=== PATIENT | female | born 1955 | race Caucasian/White ===

== ENCOUNTER 2017-06-25 16:05 | Inpatient (IN) | payer BC, OTHER ==
[~2017-06-25] VITALS: Ht 162.6 cm; Wt 93.0 kg
[~2017-06-25 16:05] MED LIST: HUMALOG100 UNIT/1 SQ; HUMALOG100 UNITS/ SQ; LEVEMIR 3M100 UNITS/ SQ; METFORMIN HCL1000 MG PO; NORVASC; NORVASC10 MG PO; PROZAC10 MG PO; SIMVASTATIN; TRAZODONE HCL100 MG PO; TRILIPIX; TRILIPIX45 MG PO
--- OUTSIDE RECORDS SUMMARY | 2017-06-25 16:08 | XMS REPORT | Summary of Care ---
Author Author JIM VELASQUEZ M.D. Organization Unknown Address Unknown Phone Unavailable Care Team Providers Care Plastic Frame Inserter Name Role Phone JIM VELASQUEZ M.D. Unavailable Unavailable Unavailable Unavailable Functional Status Name Dates Details Functional status health issues are not documented Status: Name Dates Details Cognitive status health issues are not documented Status: Problems Name Dates Details BMI 36.0-36.9,adult (V85.36, Z68.36) Status: Active Gout, arthritis (274.00, M10.9) Status: Active Abnormal LFTs (liver function tests) (790.6, R94.5) Status: Active Diabetes mellitus (250.00, E11.9) Status: Active Hypertension (401.9, I10) Status: Active Mixed hyperlipidemia (272.2, E78.2) Status: Active Vitamin D insufficiency (268.9, E55.9) Status: Active Medications Name Dates Details Shay Maldonado 33G Check BG 3x a day Quantity: 100 EVA Kimberly.JIM Armando * Start : 02-Dec-2013 Active MetFORMIN HCl - 1000 MG Oral Tablet TAKE ONE (1) TABLET(S) BY MOUTH TWICE A DAY WITH FOOD. * Quantity: 60 Refills: 2 EVA Kimberly.Juan Alberto.JIM * Start : 03-May-2017 Active B-12 500 MCG Oral Tablet TAKE 1 TABLET DAILY. * Quantity: 100 Refills: 6 EVA Kimberly.JIM Armando * Start : 02-Dec-2013 Active Vitamin D3 2000 UNIT Oral Capsule 1 a day Restart 06-05-15 * Quantity: 100 Refills: 6 EVA Kimberly.JIM Armando * Start : 02-Dec-2013 Active PROzac 20 MG Oral Capsule * Refills: 0 EVA M.JIM Armando * Start : 02-Dec-2013 Active TraZODone HCl - 150 MG Oral Tablet * Refills: 0 EVA M.JIM Armando * Start : 02-Dec-2013 Active Aspirin 81 MG TABS * Refills: 0 EVA M.D., JIM * Start : 02-Dec-2013 Active BD Pen Needle Short U/F 31G X 8 MM 5 a day * Quantity: 500 Refills: 10 JIM VELASQUEZ M.D. * Start : 02-Dec-2013 Active Vqnmw-3-etll Ethyl Esters 1 GM Oral Capsule TAKE 4 CAPSULES DAILY. * Quantity: 360 Refills: 1 JIM VELASQUEZ M.D. * Start : 01-Feb-2014 Active ALPRAZolam 1 MG Oral Tablet * Refills: 0 JIM VELASQUEZ M.D. * Start : 01-Feb-2014 Active NovoLOG FlexPen 100 UNIT/ML Subcutaneous Solution Pen-injector INJECT 20 UNITS SUBCUTANEOUSLY WITH MEALS, 5 UNITS WITH SNACKS, CF 40 UP TO A MAXIMUM OF 100 UNITS A DAY. * Quantity: 2 Refills: 2 JIM VELASQUEZ M.D. * Start : 09-Aug-2014 Active 5 x 3 ML Pen OneTouch Verio In Vitro Strip Check BG 3x a day * Quantity: 100 Refills: 10 JIM VELASQUEZ M.D. * Start : 11-Feb-2015 Active Tresiba FlexTouch 200 UNIT/ML Subcutaneous Solution Pen-injector INJECT 100 UNITS SUBCUTANEOUSLY ONCE A DAY (REPLACING LANTUS). * Quantity: 2 Refills: 2 JIM VELASQUEZ M.D. * Start : 07-Jun-2017 Active 3 x 3 ML Pen Clotrimazole 1 % External Cream APPLY 2-3 TIMES DAILY TO AFFECTED AREA(S). * Quantity: 2 Refills: 6 JIM VELASQUEZ M.D. Start : 20-Sep-2015 Active 45 GM Tube Allopurinol 100 MG Oral Tablet Per PCP * Refills: 0 JIM VELASQUEZ M.D. * Start : 28-Aug-2016 Active Valsartan 320 MG Oral Tablet TAKE ONE (1) TABLET(S) BY MOUTH ONCE DAILY. * Quantity: 90 Refills: 0 JIM VELASQUEZ M.D. * Start : 02-Jun-2017 Active Atorvastatin Calcium 20 MG Oral Tablet TAKE ONE (1) TABLET(S) BY MOUTH ONCE A DAY AT BEDTIME. REPLACING SIMVASTATIN. * Quantity: 30 Refills: 2 JIM VELASQUEZ M.D. * Start : 03-May-2017 Active Farxiga 10 MG Oral Tablet 1 tablet every day;REplacing Jardiance * Quantity: 30 Refills: 3 EVA Mitchell, JIM * Start : 22-Apr-2017 Active Gabapentin 300 MG Oral Capsule * Refills: 0 JIM VELASQUEZ M.D. * Start : 22-Apr-2017 Active Allergies and Adverse Reactions Name Dates Details Codeine Sulfate TABS (Allergy) Status: Active Lisinopril TABS (Allergy) Status: Active Morphine Sulfate TABS (Allergy) Status: Active Past Medical History Name Dates Details History of IBS (V12.79, Z87.19) Status: Resolved History of pancreatitis (V12.79, Z87.19) Status: Resolved Procedures Procedure Dates Details History of Section Completed History of Hemorrhoidectomy Completed History of Foot Surgery Completed Immunization Name Dates Details Influenza on: 20-Dec-2013 Influenza Comments: Approx [id number] Zoster (Zostavax) Comments: Approx [id number] Influenza Comments: Approx [id number] Influenza Comments: Approx [id number] Family History Name Dates Details Family history of diabetes mellitus (V18.0, Z83.3) Status: Active Family history of coronary arteriosclerosis (V17.3, Z82.49) Status: Active Social History Name Dates Details - Status: Name Dates Details Never smoker Vital Signs Date Test Result Details No Known Vitals to report Results Date Description Value Details Results not documented Plan of Care Name Dates Details Planned Observations Planned Goals not documented Planned Encounters Appointment; JIM VELASQUEZ M.D. On: 27-Jul-2017 16:15 Instructions Name Dates Details Instructions not documented Encounters Appointment; JIM VELASQUEZ M.D. Encounter Diagnosis: Problem not documented On: 20-Sep-2015 10:30 Appointment; JIM VELASQUEZ M.D. Encounter Diagnosis: Problem not documented On: 29-Jan-2016 8:00 Appointment; IJM VELASQUEZ M.D. Encounter Diagnosis: Problem not documented On: 13-May-2016 8:00 Appointment; JIM VELASQUEZ M.D. Encounter Diagnosis: Problem not documented On: 28-Aug-2016 9:30 Appointment; JIM VELASQUEZ M.D. Encounter Diagnosis: Problem not documented On: 06-Jan-2017 8:30 Appointment; JIM VELASQUEZ M.D. Encounter Diagnosis: Problem not documented On: 22-Apr-2017 16:15
[2017-06-25] MEDS ORDERED: SODIUM CHLORIDE 0.9% 1000ML 1,000 ML IV STA (16:32)
[2017-06-25] MEDS ORDERED: ONDANSETRON HCL INJ 2 MG/ML VIAL IV STA (16:32)
[2017-06-25] MEDS ORDERED: FENTANYL CITRATE/PF 100MCG/2 ML INJ IV ONE ×2 (16:45→19:15)
[2017-06-25] MEDS ORDERED: ONDANSETRON HCL 4 MG ORAL DISINTEGRATING TAB PO ONE (17:00)
--- NOTE | 2017-06-25 17:11 | Diagnostic Imaging Report ---
PROCEDURE: A single AP view of the chest. COMPARISON: None. INDICATIONS: RIGHT UPPER QUAD PAIN TODAY FINDINGS: Exam limited by patient rotation. Lines/tubes: None. Lungs: Lungs are well-inflated. Patchy opacity in the left lower lobe. No consolidation or pulmonary edema. Pleura: There is no pleural effusion or pneumothorax. Heart and mediastinum: Mild prominent cardiac silhouette, which is partly due to AP projection. Normal pulmonary vasculature. Bones: No acute bony abnormality. IMPRESSION: 1. patchy opacity in the left lower lobe likely represents atelectasis. Developing pneumonia is a consideration, in the appropriate clinical setting. Khang Miller M.D. Dictated by: Khang Miller M.D. on 06/25/2017 at 17:11 Electronically approved by: Khang Miller M.D. on 06/25/2017 at 17:11
[2017-06-25 17:17] LABS: BASOPHILS # (AUTO) 0.1 (0.0-0.1); BASOPHILS % 0.7 % (0.0-1.0); EOSINOPHILS # (AUTO) 0.4 (0.0-0.4); HEMATOCRIT 44.7 % (34.2-44.1); HEMOGLOBIN 14.9 g/dL (12.0-16.0); LYMPHOCYTES # (AUTO) 2.6 (1.0-3.2); LYMPHOCYTES % 28.9 % (18.0-39.1); MEAN CORPUSCULAR HEMOGLOBIN 29.7 pg (28-32); MEAN CORPUSCULAR HGB CONC 33.3 g/dL (31-35); MEAN CORPUSCULAR VOLUME 89.2 fL (81-99); MONOCYTES # (AUTO) 0.6 (0.2-0.8); MONOCYTES % 6.6 % (4.4-11.3); NEUTROPHILS # (AUTO) 5.4 (2.1-6.9); NEUTROPHILS % 59.3 % (38.7-80.0); PLATELET COUNT 148 x10e3/uL (140-360); RED BLOOD COUNT 5.01 x10e6/uL (3.6-5.1); RED CELL DISTRIBUTION WIDTH 13.8 % (11.7-14.4)
[2017-06-25 17:32] LABS: ALANINE AMINOTRANSFERASE 80 IU/L (0-55); ALBUMIN/GLOBULIN RATIO 1.1 (0.8-2.0); ALKALINE PHOSPHATASE 58 IU/L (40-150); AMYLASE 47 U/L (25-125); ANION GAP 17.7 mmol/L (8-16); BLOOD UREA NITROGEN 15 mg/dL (7-26); BUN/CREATININE RATIO 17 (6-25); CALCIUM 9.6 mg/dL (8.4-10.2); CARBON DIOXIDE 22 mmol/L (22-29); CHLORIDE 104 mmol/L (98-107); CREATINE KINASE 109 IU/L (29-168); CREATININE, SERUM 0.89 mg/dL (0.57-1.11); EST GLOMERULAR FILTRATION RATE > 60 ML/MIN (60-); GLUCOSE 257 mg/dL (74-118); LIPASE 172 U/L (8-78); POTASSIUM 4.7 mmol/L (3.5-5.1); SODIUM 139 mmol/L (136-145)
--- NOTE | 2017-06-25 18:15 | Diagnostic Imaging Report ---
PROCEDURE: CT ABDOMEN AND PELVIS WITHOUT CONTRAST TECHNIQUE: The abdomen and pelvis were scanned utilizing a multidetector helical scanner from the diaphragm to the lesser trochanter. Patient unable to tolerate any oral contrast due to nausea. No IV contrast was administered per physician's request. Coronal and sagittal multiplanar reformations were obtained. COMPARISON: None. INDICATIONS: RIGHT SIDE ABDOMINAL PAIN, NAUSEA FINDINGS: ABSENCE OF INTRAVENOUS CONTRAST DECREASES SENSITIVITY FOR DETECTION OF FOCAL LESIONS AND VASCULAR PATHOLOGY. LOWER THORAX: 5 mm calcified granuloma in the posteromedial left lower lobe (series 3, image 35). 2-3 mm calcified granuloma in the lingula (series 3, image 9). HEPATOBILIARY: The liver is enlarged, measuring 16.9 cm in the right midclavicular line. Borderline low-attenuation, likely reflecting mild steatosis. No focal lesions in this unenhanced exam. Mild central intrahepatic biliary ductal dilation. The common bile duct is mildly dilated, measuring approximately 9 mm at the seda hepatis. No radiopaque intraluminal filling defects. Gallbladder is contracted. 0.6 cm calcified stone in the gallbladder lumen at the fundus. No pericholecystic fluid. SPLEEN: Borderline to mild splenomegaly, measuring 12.4 cm in AP diameter. PANCREAS: No focal masses or ductal dilatation. ADRENALS: No adrenal nodules. KIDNEYS/URETERS: No renal or ureteral calculi, hydronephrosis, or obstruction. No contour abnormalities. PELVIC ORGANS/BLADDER: Bladder and uterus are unremarkable. No adnexal masses. PERITONEUM / RETROPERITONEUM: No free air or fluid. LYMPH NODES: No intra-abdominal, retroperitoneal, pelvic, or inguinal adenopathy. VESSELS: Atherosclerotic calcification of the infrarenal abdominal aorta and proximal vessels. GI TRACT: No bowel dilation or evidence of obstruction. Appendix is well identified and normal in caliber. Oval shaped high density structure measuring 1.1 cm in the cecum likely represents an ingested pill material (series 3, image 120). A few scattered diverticula are noted in the sigmoid colon, without diverticulitis. Stomach is unremarkable. BONES AND SOFT TISSUES: No aggressive lytic lesions. Mild degenerative disc changes in the lower thoracic and lumbosacral spine. Tiny fat containing umbilical hernia. IMPRESSION: 1. Contracted gallbladder. Cholelithiasis. No pericholecystic fluid or surrounding inflammatory changes to suggest acute cholecystitis. 2. Mild central intrahepatic biliary ductal dilation and mild dilation of the common bile duct. No radiopaque intraluminal filling defects are identified. Consider MRI abdomen/MRCP if there is clinical concern for choledocholithiasis. 3. Hepatomegaly with mild fatty infiltration. No focal lesions in this unenhanced exam. Khang Miller M.D. Dictated by: Khang Miller M.D. on 06/25/2017 at 18:15 Electronically approved by: Khang Miller M.D. on 06/25/2017 at 18:15
--- NOTE | 2017-06-25 18:40 | Diagnostic Imaging Report ---
PROCEDURE:US GALLBLADDER COMPARISON:[facility], CT, CT ABDOMEN/PELVIS WO, 06/25/2017, 17:24. INDICATIONS:ABDOMEN PAIN TECHNIQUE: Vlilasenor-scale and color doppler transverse and longitudinal images of the right upper quadrant of the abdomen were obtained. FINDINGS: Exam limited by overlying bowel gas and patient's body habitus. The patient is not n.p.o. Liver: 17.9 cm in right mid-clavicular line. Increased echogenicity. No masses. Main portal vein: 0.9 cm, hepatopetal flow Gallbladder: Contracted gallbladder, which limits evaluation. 0.8 cm echogenic stone with posterior acoustic shadowing in the gallbladder lumen. No sludge. No pericholecystic fluid. Common Bile Duct: 0.9 cm, mildly dilated. Sonographic Flores's sign: Positive Right kidney: 11.7 cm. Normal echogenicity. No solid masses or hydronephrosis. 1.4 x 1.3 x 1.1 cm cystic, anechoic lesion in the inferomedial aspect Pancreas: The visualized portions of the neck are unremarkable. Inferior vena cava: Patent Aorta: Proximal and mid-portions are unremarkable. Distal aorta is obscured by overlying bowel gas. Ascites: None in the right upper quadrant of the abdomen. CONCLUSION: 1. Contracted gallbladder, which limits evaluation. 0.8 cm echogenic stone in the gallbladder lumen. The sonographic Flores sign is positive, which raises the possibility of cholecystitis, however, no definite wall thickening or surrounding inflammatory changes or pericholecystic fluid are noted on CT performed same date. 2. Mild dilation of the common bile duct. MRI abdomen/MRCP is recommended, if there is clinical concern for choledocholithiasis. 3. Hepatomegaly with diffuse fatty infiltration. No focal lesions. 4. 1.4 cm simple cyst in the right kidney. Khang Miller M.D. Dictated by: Khang Miller M.D. on 06/25/2017 at 18:01 Electronically approved by: Khang Miller M.D. on 06/25/2017 at 18:41
[2017-06-25] MEDS ORDERED: CEFOXITIN 1GM/ DEXTROSE 50ML ML IV SCH (20:15)
[2017-06-25] MEDS ORDERED: HYDROMORPHONE 1MG/1ML INJ IV PRN (20:15)
[2017-06-25] MEDS ORDERED: DEXTROSE 50% SYRINGE 50 ML IV PRN ×2 (20:15→20:30)
[2017-06-25] MEDS ORDERED: METRONIDAZOLE 500MG/NS 100ML 100 ML IV SCH (20:15)
--- OUTSIDE RECORDS SUMMARY | 2017-06-25 20:31 | XMS REPORT ---
Author [facility] Address Unknown Phone Unavailable Care Team Providers Care Sterile Supervisor Name Role Phone SNOW MANSFIELD Unavailable Unavailable Problems This patient has no known problems. Allergies, Adverse Reactions, Alerts This patient has no known allergies or adverse reactions. Medications This patient has no known medications. Results Test Description Test Time Test Comments Text Results Atomic Results Result Comments CHEST SINGLE (PORTABLE) [place] [address] Patient Name: RHIANNON TORRES MR #: [id number] : 1955 Age/Sex: 61/F Req #: [id number] Adm Physician: Ordered by: ESTUARDO GARZA VEST BACKER Report #: [id number] Location: ER Room/Bed: Procedure: [id number] DX/CHEST SINGLE (PORTABLE) Exam Date: 06/25/17 Exam Time: 1645 REPORT STATUS: Signed PROCEDURE: A single AP view of the chest. COMPARISON: None. INDICATIONS: RIGHT UPPER QUAD PAIN TODAY FINDINGS: Exam limited by patient rotation. Lines/tubes: None. Lungs: Lungs are well-inflated. Patchy opacity in the left lower lobe. No consolidation or pulmonary edema. Pleura: There is no pleural effusion or pneumothorax. Heart and mediastinum: Mild prominent cardiac silhouette, which is partly due to AP projection. Normal pulmonary vasculature. Bones: No acute bony abnormality. IMPRESSION : 1. patchy opacity in the left lower lobe likely represents atelectasis. Developing pneumonia is a consideration, in the appropriate clinical setting. Karla Miller M.D. Dictated by: Karla Miller M.D. on 06/25/2017 at 17:11 Electronically approved by : Karla Miller M.D. on 06/25/2017 at 17:11 Dictated By: KARLA MILLER MD 10 Transcribed By: KENY on 06/25/171710 COPY TO: ESTUARDO GARZA NP CT ABDOMEN/PELVIS WO [place] [address] Patient Name: RHIANNON TORRES MR #: [id number] : 1955 Age/Sex: 61/F Req #: [id number] Adm Physician: Ordered by: ESTUARDO GARZA NP Report #: [id number] Location: ER Room/Bed: Procedure: [id number] CT/CT ABDOMEN/PELVIS WO Exam Date: 06/25/17 Exam Time: 1724 REPORT STATUS: Signed PROCEDURE: CT ABDOMEN AND PELVIS WITHOUT CONTRAST TECHNIQUE: The abdomen and pelvis were scanned utilizing a multidetector helical scanner from the diaphragm to the lesser trochanter. Patient unable to tolerate any oral contrast due to nausea. No IV contrast was administered per physician's request. Coronal and sagittal multiplanar reformations were obtained. COMPARISON: None. INDICATIONS: RIGHT SIDE ABDOMINAL PAIN, NAUSEA FINDINGS: ABSENCE OF INTRAVENOUS CONTRAST DECREASES SENSITIVITY FOR DETECTION OF FOCAL LESIONS AND VASCULAR PATHOLOGY. LOWER THORAX: 5 mm calcified granuloma in the posteromedial left lower lobe (series 3, image 35). 2-3 mm calcified granuloma in the lingula (series 3, image 9). HEPATOBILIARY: The liver is enlarged, measuring 16.9 cm in the right midclavicular line. Borderline low-attenuation, likely reflecting mild steatosis. No focal lesions in this unenhanced exam. Mild central intrahepatic biliary ductal dilation. The common bile duct is mildly dilated, measuring approximately 9 mm at the seda hepatis. No radiopaque intraluminal filling defects. Gallbladder is contracted. 0.6 cm calcified stone in the gallbladder lumen at the fundus. No pericholecystic fluid. SPLEEN: Borderline to mild splenomegaly, measuring 12.4 cm in AP diameter. PANCREAS: No focal masses or ductal dilatation. ADRENALS: No adrenal nodules. KIDNEYS/URETERS: No renal or ureteral calculi, hydronephrosis, or obstruction. No contour abnormalities. PELVIC ORGANS/ BLADDER: Bladder and uterus are unremarkable. No adnexal masses. PERITONEUM / RETROPERITONEUM: No free air or fluid. LYMPH NODES: No intra- abdominal, retroperitoneal, pelvic, or inguinal adenopathy. VESSELS: Atherosclerotic calcification of the infrarenal abdominal aorta and proximal vessels. GI TRACT: No bowel dilation or evidence of obstruction. Appendix is well identified and normal in caliber. Oval shaped high density structure measuring 1.1 cm in the cecum likely represents an ingested pill material ( series 3, image 120). A few scattered diverticula are noted in the sigmoid colon, without diverticulitis. Stomach is unremarkable. BONES AND SOFT TISSUES: No aggressive lytic lesions. Mild degenerative disc changes in the lower thoracic and lumbosacral spine. Tiny fat containing umbilical hernia. IMPRESSION: 1. Contracted gallbladder. Cholelithiasis. No pericholecystic fluid or surrounding inflammatory changes to suggest acute cholecystitis. 2. Mild central intrahepatic biliary ductal dilation and mild dilation of the common bile duct. No radiopaque intraluminal filling defects are identified. Consider MRI abdomen/MRCP if there is clinical concern for choledocholithiasis. 3. Hepatomegaly with mild fatty infiltration. No focal lesions in this unenhanced exam. Karla Miller M.D. Dictated by: Karla Miller M.D. on 06/25/2017 at 18:15 Electronically approved by: Karla Miller M.D. on 06/25/2017 at 18:15 Dictated By: KARLA MILLER MD 14 Transcribed By: KENY on 06/25/171814 COPY TO: ESTUARDO GARZA NP US GALLBLADDER [place] [address] Patient Name: RHIANNON TORRES MR #: [id number] : 1955 Age/Sex: 61/F Req #: [id number] Adm Physician: Ordered by: ESTUARDO GARZA NP Report #: [id number] Location: ER Room/Bed: Procedure: [id number] US/US GALLBLADDER Exam Date: 06/25/17 Exam Time: 1701 REPORT STATUS: Signed PROCEDURE: US GALLBLADDER COMPARISON: [facility], CT, CT ABDOMEN/PELVIS WO, 06/25/2017, 17:24. INDICATIONS: ABDOMEN PAIN TECHNIQUE: Villasenor-scale and color doppler transverse and longitudinal images of the right upper quadrant of the abdomen were obtained. FINDINGS: Exam limited by overlying bowel gas and patient's body habitus. The patient is not n.p.o. Liver: 17.9 cm in right mid-clavicular line. Increased echogenicity. No masses. Main portal vein: 0.9 cm, hepatopetal flow Gallbladder: Contracted gallbladder, which limits evaluation. 0.8 cm echogenic stone with posterior acoustic shadowing in the gallbladder lumen. No sludge. No pericholecystic fluid. Common Bile Duct: 0.9 cm, mildly dilated. Sonographic Flores's sign: Positive Right kidney: 11.7 cm. Normal echogenicity. No solid masses or hydronephrosis. 1.4 x 1.3 x 1.1 cm cystic, anechoic lesion in the inferomedial aspect Pancreas: The visualized portions of the neck are unremarkable. Inferior vena cava: Patent Aorta: Proximal and mid-portions are unremarkable. Distal aorta is obscured by overlying bowel gas. Ascites: None in the right upper quadrant of the abdomen. CONCLUSION: 1. Contracted gallbladder, which limits evaluation. 0.8 cm echogenic stone in the gallbladder lumen. The sonographic Flores sign is positive, which raises the possibility of cholecystitis, however, no definite wall thickening or surrounding inflammatory changes or pericholecystic fluid are noted on CT performed same date. 2. Mild dilation of the common bile duct. MRI abdomen/MRCP is recommended, if there is clinical concern for choledocholithiasis. 3. Hepatomegaly with diffuse fatty infiltration. No focal lesions. 4. 1.4 cm simple cyst in the right kidney. Karla Miller M.D. Dictated by: Karla Miller M.D. on 06/25/2017 at 18:01 Electronically approved by: Karla Miller M.D. on 06/25/2017 at 18:41 Dictated By: KARLA MILLER MD 40 Transcribed By: KENY on 06/25/171840 COPY TO: ESTUARDO GARZA NP
[2017-06-25] MEDS: INSULIN REGULAR, HUMAN 100 UNIT/1 ML 3ML VIAL SQ SCH (21:00)
[2017-06-25] MEDS: DEXTROSE 5%/0.45% SOD CHL 1,000 ML IV SCH (21:10)
[2017-06-25 22:20] VITALS: BP 146/99
[2017-06-25] MEDS: CEFOXITIN SOD 1 GM VIAL IV SCH (22:26)
[2017-06-25] MEDS: ONDANSETRON HCL INJ 2 MG/ML VIAL IV PRN (23:20)
[2017-06-26] VITALS (8 sets, daily range): BP systolic 100–146; BP diastolic 53–99
[2017-06-26] MEDS ORDERED: GABAPENTIN400 MG PO (02:25)
[2017-06-26] MEDS ORDERED: ALLOPURINOL300 MG PO (02:26)
[2017-06-26] MEDS ORDERED: ATORVASTATIN CA20 MG PO (02:29)
[2017-06-26] MEDS ORDERED: ALPRAZOLAM1 MG PO (02:30)
[2017-06-26] MEDS ORDERED: LYRICA75 MG PO (02:32)
[2017-06-26] MEDS ORDERED: METFORMIN HCL500 MG PO (02:33)
[2017-06-26] MEDS: ONDANSETRON HCL INJ 2 MG/ML VIAL IV PRN ×2 (03:30→19:15)
[2017-06-26] MEDS: CEFOXITIN SOD 1 GM VIAL IV SCH ×3 (05:00→21:00)
[2017-06-26] MEDS: HYDROCODONE/APAP 10MG-325MG TAB PO PRN ×4 (06:31→22:35)
[2017-06-26 06:39] LABS: BILIRUBIN,URINE NEGATIVE (NEGATIVE); CLARITY,URINE CLEAR (CLEAR); COLOR,URINE YELLOW (YELLOW); KETONES,URINE NEGATIVE (NEGATIVE); LEUKOCYTE ESTERASE ,URINE NEGATIVE (NEGATIVE); NITRITE,URINE NEGATIVE (NEGATIVE); PROTEIN,URINE DIPSTICK NEGATIVE (NEGATIVE); URINE UROBILINOGEN 0.2 mg/dL (0.2 - 1)
[2017-06-26 07:06] LABS: BACTERIA,URINE FEW /HPF; RBC,URINE 0-5 /HPF (0-5); WBC,URINE (MAN) 0-5 /HPF (0-5)
[2017-06-26] MEDS: INSULIN REGULAR, HUMAN 100 UNIT/1 ML 3ML VIAL SQ SCH ×3 (07:30→16:58)
[2017-06-26 07:32] LABS: BASOPHILS % 0.6 % (0.0-1.0); EOSINOPHILS # (AUTO) 0.1 (0.0-0.4); EOSINOPHILS % 1.3 % (0.0-6.0); HEMATOCRIT 43.3 % (34.2-44.1); HEMOGLOBIN 14.1 g/dL (12.0-16.0); LYMPHOCYTES % 14.4 % (18.0-39.1); MEAN CORPUSCULAR HEMOGLOBIN 29.4 pg (28-32); MEAN CORPUSCULAR HGB CONC 32.6 g/dL (31-35); MEAN CORPUSCULAR VOLUME 90.4 fL (81-99); MONOCYTES # (AUTO) 0.3 (0.2-0.8); MONOCYTES % 4.8 % (4.4-11.3); NEUTROPHILS # (AUTO) 5.4 (2.1-6.9); PLATELET COUNT 118 x10e3/uL (140-360); RED BLOOD COUNT 4.79 x10e6/uL (3.6-5.1); RED CELL DISTRIBUTION WIDTH 13.8 % (11.7-14.4)
[2017-06-26] MEDS: DEXTROSE 5%/0.45% SOD CHL 1,000 ML IV SCH (07:38)
[2017-06-26 08:13] LABS: ALANINE AMINOTRANSFERASE 67 IU/L (0-55); ALBUMIN 3.7 g/dL (3.5-5.0); ALBUMIN/GLOBULIN RATIO 1.2 (0.8-2.0); ALKALINE PHOSPHATASE 47 IU/L (40-150); AMYLASE 26 U/L (25-125); ANION GAP 12.3 mmol/L (8-16); BLOOD UREA NITROGEN 13 mg/dL (7-26); BUN/CREATININE RATIO 15 (6-25); CALCIUM 8.9 mg/dL (8.4-10.2); CARBON DIOXIDE 30 mmol/L (22-29); CHLORIDE 101 mmol/L (98-107); CREATININE, SERUM 0.85 mg/dL (0.57-1.11); EST GLOMERULAR FILTRATION RATE > 60 ML/MIN (60-); GLUCOSE 241 mg/dL (74-118); LIPASE 44 U/L (8-78); POTASSIUM 4.3 mmol/L (3.5-5.1); SODIUM 139 mmol/L (136-145)
[2017-06-26] MEDS: FLUOXETINE HCL 10 MG CAP PO SCH (09:59)
[2017-06-26] MEDS: AMLODIPINE BESYLATE 10 MG TAB PO SCH (09:59)
[2017-06-26] MEDS: SODIUM CHLORIDE 0.45% 1,000 ML IV SCH (11:09)
[2017-06-26] MEDS: KETOROLAC TROMETHAMINE 30 MG/ML VIAL IV PRN ×2 (11:10→19:13)
[2017-06-26] MEDS ORDERED: HYDROMORPHONE 1MG/1ML INJ IV PRN (12:15)
[2017-06-26] MEDS: PROMETHAZINE 12.5MG/ NACL 0.9% 12.5 MG/50 ML BAG IV PRN (14:04)
--- NOTE | 2017-06-26 15:15 | History and Physical ---
CHIEF COMPLAINT: Abdominal pain, gallbladder problem, gallstones and gallstone pancreatitis. HISTORY OF PRESENT ILLNESS: Patient is a 61-year-old female who came in with abdominal pain and cramping in the right upper quadrant. Abdominal pain is associated with nausea and vomiting. The patient had multiple workup done in the emergency room. Her liver enzymes were slightly elevated. Her lipase is 172. The CT scan of the abdomen and pelvis confirmed that she has a contracted gallbladder with stones. She also has possible intrahepatic biliary ductal stone. MRCP is still pending. The patient is otherwise stable at this time. She did receive some Dilaudid and had some headache. The patient has no other chronic medical problems such as coronary, lung or renal dysfunction. PAST MEDICAL HISTORY: Anxiety disorder, hypertension, hyperlipidemia, depression, diabetes type 2 on insulin therapy associated with diabetic neuropathy, insomnia. PAST SURGICAL HISTORY: Noncontributory. SOCIAL HISTORY: Patient does not smoke or use alcohol. No recreational drugs. HOME MEDICATIONS: Allopurinol, Xanax, Norvasc, Lipitor, fenofibrate, Prozac, gabapentin, insulin lispro, metformin, Lyrica and trazodone. ALLERGIES: MORPHINE AND CODEINE. PHYSICAL EXAMINATION VITAL SIGNS: Temperature is 98. Blood pressure 128/62. Pulse rate 94. Respirations 20. GENERAL: The patient is not in acute distress. She is awake, although she does have headaches and abdominal pain. HEENT: Normocephalic, atraumatic, anicteric. NECK: Supple grossly. PULMONARY: Diminished breath sounds. CARDIOVASCULAR: Regular rhythm. ABDOMEN: Right upper quadrant tenderness with some guarding. EXTREMITIES: No cyanosis or edema. NEUROLOGIC: No focal deficit. LABORATORY: Sodium is 139, potassium 4.7, chloride 104, bicarb 22, BUN 15, creatinine 0.9. Glucose 257. AST is 70, ALT 80, alkaline phosphatase 58, lipase 172. WBC is 9, hemoglobin 15, hematocrit 45, platelets 148. Urinalysis shows 3+ glucose. Abdominal and pelvis CT and gallbladder ultrasound all were done. Contracted gallbladder. Gallstones. Possible ductal dilatation. IMPRESSION 1. Acute cholecystitis associated with gallstone. 2. Possible common bile duct stone. 3. Mildly elevated liver enzymes and lipase. 4. Multiple chronic baseline problems. PLAN: Pain control. IV fluids and n.p.o. except for medication. MRCP. Consultation with Dr. Lalo Hughes and Dr. Leonardo Payton. N.P.O. except for medication. IV fluids. Pain control. Will give the patient Toradol for pain and Dilaudid for breakthrough pain. Job#: [id number]
--- NOTE | 2017-06-26 19:49 | Diagnostic Imaging Report ---
EXAM: MRI ABDOMEN WITHOUT CONTRAST WITH MRCP INDICATION: Gallbladder stones and choledocholithiasis.. COMPARISON: None. TECHNIQUE: Multiplanar and multisequence MRI imaging was performed of the abdomen. Additional volumetric T2 acquisitions were obtained for MRCP No IV contrast. DISCUSSION: LOWER THORAX: Unremarkable. HEPATOBILIARY: There is diffuse loss of signal on out of phase images, consistent with diffuse hepatic steatosis. No focal hepatic lesions. No biliary ductal dilation. Specifically, no evidence of filling defects along the CBD, gallbladder or cystic duct. GALLBLADDER: There is minimal layering sludge in the gallbladder noted on T1. No wall thickening. SPLEEN: No splenomegaly. PANCREAS: No focal masses or ductal dilatation. ADRENALS: No adrenal nodules KIDNEYS/URETERS: Kidneys enhance symmetrically. No hydronephrosis. There are bilateral small simple cysts. GI TRACT: No abnormal distention, wall thickening, or evidence of bowel obstruction. Appendix is normal. LYMPH NODES: No lymphadenopathy. VESSELS: There is mild atherosclerotic disease in the aorta and major arterial branches. PERITONEUM / RETROPERITONEUM: No free air or fluid. BONES: Unremarkable. SOFT TISSUES: Unremarkable. IMPRESSION: 1. No evidence of cholelithiasis or choledocholithiasis. 2. Diffuse hepatic steatosis. Signed by: Dr. Akash Thornton M.D. on 06/26/2017 7:46 PM
--- NOTE | 2017-06-26 20:28 | Consultation ---
DATE OF CONSULTATION: June 26, 2017 CHIEF COMPLAINT: Abdominal pain. HISTORY OF PRESENT ILLNESS: The patient is a 61-year-old female with 1-day history of pain starting in the epigastric area and radiating to the back with nausea. No vomiting. No fever, chills or diarrhea. PAST MEDICAL HISTORY: She has history of diabetes, hypertension, hyperlipidemia, anxiety disorder. SURGICAL HISTORY: Positive for . ALLERGIES: THE PATIENT HAD ALLERGIC REACTION TO CODEINE AND MORPHINE. SOCIAL HABITS: She does not smoke or drink alcohol. REVIEW OF SYSTEMS: No chest pain or shortness of breath. PHYSICAL EXAMINATION VITALS: Stable. She is afebrile. GENERAL: The patient is awake, alert, in no apparent distress. HEENT: Sclerae are nonicteric. NECK: Supple. LUNGS: Clear. HEART: Regular rate and rhythm. ABDOMEN: Soft with some guarding. Tenderness in the right upper quadrant without rebound. EXTREMITIES: Without cyanosis or edema. LABS: White cell count 6, hemoglobin of 14. Creatinine of 0.8. Liver function tests unremarkable. Lipase of 172. Gallbladder ultrasound showed gallstones with no evidence of wall thickening. There is mild dilatation of the bile duct. ASSESSMENT: Cholelithiasis and probable cholecystitis. PLAN: MRCP is done to rule out bile duct stone. Will proceed with cholecystectomy once bile duct is cleared. Thank you for this consultation. Job#: [id number]
[2017-06-26] MEDS: TRAZODONE HCL 50 MG TAB PO PRN (22:08)
[2017-06-27] VITALS (8 sets, daily range): BP systolic 111–153; BP diastolic 59–78
[2017-06-27] MEDS: SODIUM CHLORIDE 0.45% 1,000 ML IV SCH ×2 (00:09→12:23)
[2017-06-27] MEDS: HYDROCODONE/APAP 10MG-325MG TAB PO PRN ×2 (04:34→19:19)
[2017-06-27] MEDS: CEFOXITIN SOD 1 GM VIAL IV SCH ×2 (05:01→12:17)
[2017-06-27] MEDS: INSULIN REGULAR, HUMAN 100 UNIT/1 ML 3ML VIAL SQ SCH ×4 (06:00→18:00)
--- NOTE | 2017-06-27 06:41 | Consultation ---
DATE OF CONSULTATION: June 26, 2017 GI CONSULT NOTE REFERRING PHYSICIAN: Tom Bueno MD REASON FOR CONSULT: Right upper quadrant pain times 2 to 3 days. HISTORY OF PRESENTING ILLNESS: [id number] very pleasant obese female with past medical history of diabetes, hypertension, hyperlipidemia, got admitted with intermittently persistent right upper quadrant pain, associated with some nausea and vomiting. CT scan of the abdomen showed gallstones with mildly thickened gallbladder wall without any pericholecystic fluid collection. Intrahepatics and common bile duct were noted dilated. The gallstones were further confirmed with ultrasound as well. Common bile duct dilated to 7 mm. Liver enzymes showed a borderline elevated aminotransferases with normal total bilirubin and alkaline phosphatase level. MRCP was performed that showed no cholelithiasis or any choledocholithiasis. Amylase, lipase levels were noted normal. Patient has been seen and evaluated by surgeon, Dr. Hughes, who is going to take the patient in the OR on Wednesday for laparoscopic cholecystectomy. REVIEW OF SYSTEMS: Twelve-point system reviewed, symptomatology is limited to GI system. PAST MEDICAL HISTORY: Insulin-dependent diabetes, hypertension, hyperlipidemia, anxiety disorder, diabetic neuropathy, insomnia. PAST SURGICAL HISTORY: . SOCIAL HISTORY: . Lives with her . No smoking, alcohol, or any illicit drug use. ALLERGIES: MORPHINE AND CODEINE. HOME MEDICATIONS: Allopurinol, Xanax, Norvasc, Lipitor, fenofibrate, Prozac, gabapentin, insulin Lispro, metformin, Lyrica, and trazodone. PHYSICAL EXAMINATION: VITAL SIGNS: Temperature 97.2, pulse 72, respiration 18, blood pressure 118/65, oxygen saturation 98% on room air. GENERAL: Not in any acute distress. HEENT: Moist mucous membranes. Anicteric sclerae. NECK: No neck or axillary adenopathy. CVS: S1 and S2. Regular. LUNGS: Bilaterally grossly clear. ABDOMEN: Palpable epigastric and right upper quadrant tenderness on mild palpation without rebound, rigidity, or any guarding. Positive bowel sounds. EXTREMITIES: Warm. No leg edema. LABS: Electrolytes normal. AST has come down to 44 from 70, ALT 67 from 80, total bilirubin 0.4, and alkaline phosphatase 47. WBC 6.93, hemoglobin 14.1, hematocrit 43.3, MCV 90.4, platelet count 118,000. Urinalysis negative. MRCP showed: 1. No evidence of cholelithiasis or choledocholithiasis. 2. Diffuse hepatic steatosis. CT of the abdomen and pelvis without contrast showed: 1. Contracted gallbladder. Cholelithiasis. No pericholecystic fluid or surrounding inflammatory changes to suggest acute cholecystitis. 2. Mild central intrahepatic biliary ductal dilatation and mild dilation of common bile duct. No radiopaque intraluminal filling defects are identified. Consider MRI abdomen/MRCP if there is a clinical concern for choledocholithiasis. 3. Hepatomegaly with diffuse fatty infiltration. No focal lesions seen in the unenhanced exam. Ultrasound of the right upper quadrant showed contracted gallbladder which limits evaluation. 0.8 cm echogenic stone in the gallbladder lumen. Sonographic Flores sign is positive which raises the possibility of cholecystitis. However, no definite wall thickening or surrounding inflammatory changes or pericholecystic fluid collections are seen. 4. 1.4 cm simple cyst in the right kidney. IMPRESSION: Acute cholecystitis, no choledocholithiasis. Patient does have cholelithiasis. Fatty liver that has caused mild elevation in aminotransferases level. PLAN: From GI standpoint, continue IV fluids, clear liquid diet can be advanced to solid food as tolerated. Surgery has already evaluated the patient. Patient is likely going to get laparoscopic cholecystectomy on Wednesday. From GI standpoint, ERCP is not indicated especially given negative MRCP with aminotransferases level trending down. If there is a concern for common bile duct stone, then patient can also get intraoperative cholangiogram during cholecystectomy. I thank Dr. Bueno for allowing me to participate in the care of this patient. Job#: [id number]
[2017-06-27 07:59] LABS: BASOPHILS % 0.5 % (0.0-1.0); EOSINOPHILS % 0.5 % (0.0-6.0); HEMATOCRIT 43.2 % (34.2-44.1); HEMOGLOBIN 13.9 g/dL (12.0-16.0); LYMPHOCYTES # (AUTO) 2.4 (1.0-3.2); MEAN CORPUSCULAR HEMOGLOBIN 29.9 pg (28-32); MEAN CORPUSCULAR HGB CONC 32.2 g/dL (31-35); MEAN CORPUSCULAR VOLUME 92.9 fL (81-99); MONOCYTES # (AUTO) 0.4 (0.2-0.8); MONOCYTES % 5.5 % (4.4-11.3); NEUTROPHILS # (AUTO) 4.6 (2.1-6.9); NEUTROPHILS % 60.4 % (38.7-80.0); PLATELET COUNT 135 x10e3/uL (140-360); RED BLOOD COUNT 4.65 x10e6/uL (3.6-5.1)
[2017-06-27] MEDS ORDERED: IBUPROFEN 400 MG TAB PO ONE (08:00)
[2017-06-27] MEDS: FLUOXETINE HCL 10 MG CAP PO SCH (08:14)
[2017-06-27] MEDS: AMLODIPINE BESYLATE 10 MG TAB PO SCH (08:14)
[2017-06-27 08:17] LABS: ALANINE AMINOTRANSFERASE 71 IU/L (0-55); ALBUMIN 3.8 g/dL (3.5-5.0); ALBUMIN/GLOBULIN RATIO 1.3 (0.8-2.0); ALKALINE PHOSPHATASE 47 IU/L (40-150); ANION GAP 13.6 mmol/L (8-16); BLOOD UREA NITROGEN 10 mg/dL (7-26); BUN/CREATININE RATIO 12 (6-25); CARBON DIOXIDE 29 mmol/L (22-29); CHLORIDE 100 mmol/L (98-107); CREATININE, SERUM 0.81 mg/dL (0.57-1.11); EST GLOMERULAR FILTRATION RATE > 60 ML/MIN (60-); GLUCOSE 161 mg/dL (74-118); POTASSIUM 3.6 mmol/L (3.5-5.1); SODIUM 139 mmol/L (136-145)
[2017-06-27] MEDS: KETOROLAC TROMETHAMINE 30 MG/ML VIAL IV PRN (10:56)
[2017-06-27] MEDS: PROMETHAZINE 12.5MG/ NACL 0.9% 12.5 MG/50 ML BAG IV PRN (12:17)
[2017-06-27] MEDS ORDERED: ALPRAZOLAM 0.25 MG TAB PO ONE (12:45)
[2017-06-27] MEDS: ALPRAZOLAM 0.25 MG TAB PO PRN (19:19)
[2017-06-27] MEDS ORDERED: DIPHENHYDRAMINE HCL 25 MG CAP PO PRN (20:00)
[2017-06-27] MEDS: LEVOFLOXACIN 500MG/D5W 100ML 100 ML IV SCH (21:51)
[2017-06-27] MEDS: TRAZODONE HCL 50 MG TAB PO PRN (22:13)
--- NOTE | 2017-06-27 22:51 | Progress Note ---
DATE: June 27, 2017 SUBJECTIVE: Patient reports improvement in abdominal pain. She is tolerating clear liquids. No nausea, vomiting. She is scheduled to undergo a laparoscopic cholecystectomy tomorrow. REVIEW OF SYSTEMS GENERAL: No fevers or chills. CVS: No chest pain, palpitation. RESPIRATORY: No cough or expectoration. MEDICATIONS: Reviewed as per MAY. She is getting intravenous levofloxacin, but not metronidazole. PHYSICAL EXAMINATION VITAL SIGNS: Temperature 96, pulse 64, respiration 18, blood pressure 117/62, oxygen saturation 98% on room air. GENERAL: Not in any acute distress. HEENT: Moist mucous membrane. Anicteric sclerae. CVS: S1, S2 regular. LUNGS: Bilaterally grossly clear. ABDOMEN: Soft, mild palpable right upper quadrant tenderness. No rebound, rigidity or guarding. Positive bowel sounds. EXTREMITIES: Warm. No leg edema. LAB: WBC 7.60, hemoglobin 13.9, hematocrit 43.2, platelet count 135,000. Electrolytes normal. Urine glucose 3+, otherwise negative. IMPRESSIONS AND PLAN 1. Acute cholecystitis without choledocholithiasis. She does have a cholelithiasis. 2. Fatty liver. PLAN: IV fluids. Continue IV levofloxacin. She was on intravenous metronidazole, but for some reason it has not been continued. However, she does not have any signs of biliary sepsis. Patient is scheduled to undergo laparoscopic cholecystectomy tomorrow. Will continue to follow post cholecystectomy. Patient's liver enzymes has mildly elevated aminotransferase, which is most likely due to underlying fatty liver. Will also check viral hepatitis serology Job#: [id number]
[2017-06-28] VITALS: BP 113/57
[2017-06-28 04:00] VITALS: BP 102/54
[2017-06-28] MEDS: SODIUM CHLORIDE 0.45% 1,000 ML IV SCH ×2 (05:37→21:36)
[2017-06-28] MEDS: KETOROLAC TROMETHAMINE 30 MG/ML VIAL IV PRN ×2 (05:37→21:20)
[2017-06-28] MEDS: INSULIN REGULAR, HUMAN 100 UNIT/1 ML 3ML VIAL SQ SCH ×5 (06:00→21:55)
[2017-06-28 07:24] VITALS: BP 127/69
[2017-06-28] MEDS ORDERED: HYDRALAZINE HCL 20 MG/ML VIAL IV PRN (08:45)
[2017-06-28] MEDS: FLUOXETINE HCL 10 MG CAP PO SCH (09:00)
[2017-06-28] MEDS: AMLODIPINE BESYLATE 10 MG TAB PO SCH (09:00)
[2017-06-28] MEDS ORDERED: BUPIVACAINE 0.25%/EPI 30ML SDV INJ ONE (09:11)
[2017-06-28] MEDS ORDERED: ONDANSETRON HCL INJ 2 MG/ML VIAL ONE ×2 (12:09→17:13)
[2017-06-28] MEDS ORDERED: MEPERIDINE HCL INJ 50 MG/ML INJ ONE (12:33)
--- NOTE | 2017-06-28 13:11 | Operative Report ---
DATE OF PROCEDURE: June 28, 2017 PREOPERATIVE DIAGNOSIS: Cholecystitis. POSTOPERATIVE DIAGNOSIS: Cholecystitis. OPERATIVE PROCEDURE: Laparoscopic cholecystectomy. TRIBAL JUDGE: None. ANESTHESIA: General endotracheal. INDICATIONS: The patient is a 61-year-old female with epigastric pain and gallstone seen on ultrasound. Mildly dilated bile duct, and MRCP was negative. Patient consented for laparoscopic cholecystectomy. Attendant risks discussed. PROCEDURE FINDINGS: Chronic cholecystitis. DESCRIPTION OF PROCEDURE: Patient was brought to the OR intubated. Abdomen was prepped with alcohol and draped in a sterile fashion. An infraumbilical incision was made and a 10-mm port inserted. Insufflation then began. Under direct vision, other port sites were placed in mid epigastric and right upper quadrant. Gallbladder was chronically inflamed. Fundus retracted in cephalad direction. The neck of the gallbladder retracted laterally. With blunt dissection, we isolated the cystic artery, triply clipped and divided it. The cystic duct was dissected down to the junction with the common bile duct, and the cystic duct was then triply clipped 1 cm away from the junction. Cystic duct was divided between clips. Gallbladder detached from the liver with cautery and taken out through the umbilical port site. The operative field was irrigated. Hemostasis achieved. All ports removed under direct vision. Fascia closed with interrupted #0 Vicryl. Skin was closed with subcuticular stitch. Patient extubated and transported to the recovery room. Estimated blood loss was 10 mL. Job#: [id number]
[2017-06-28] MEDS ORDERED: DEXAMETHASONE SOD PHOS INJ 4 MG/ML VIAL ONE (17:13)
[2017-06-28] MEDS ORDERED: PROPOFOL IV EMULSION 10 MG/ML 20 ML VIAL ONE (17:13)
[2017-06-28] MEDS ORDERED: ROCURONIUM BROMIDE 10 MG/ML 5ML VIAL ONE (17:13)
[2017-06-28] MEDS ORDERED: GLYCOPYRROLATE INJ 1MG/ 5 ML SYR ONE (17:13)
[2017-06-28] MEDS ORDERED: NEOSTIGMINE 5 MG/5ML SYR ONE (17:13)
[2017-06-28] MEDS ORDERED: LIDOCAINE HCL 2% LOCAL INJ 5 ML SDV VIAL INJ ONE (17:13)
[2017-06-28] MEDS ORDERED: SEVOFLURANE INHAL SOLN 250 ML PEN BTL ONE (17:13)
[2017-06-28] MEDS ORDERED: MIDAZOLAM HCL 2 MG/2 ML VIAL ONE (18:33)
[2017-06-28] MEDS ORDERED: FENTANYL CITRATE/PF 100MCG/2 ML INJ ONE (18:33)
[2017-06-28 20:00] VITALS: BP 146/73
[2017-06-28] MEDS: LEVOFLOXACIN 500MG/D5W 100ML 100 ML IV SCH (20:02)
[2017-06-28] MEDS ORDERED: HYDROCODONE/APAP 10MG-325MG TAB PO PRN (21:00)
[2017-06-28] MEDS ORDERED: HYDROMORPHONE 1MG/1ML INJ IV PRN (21:00)
[2017-06-28] MEDS: ALPRAZOLAM 0.25 MG TAB PO PRN (21:20)
[2017-06-28] MEDS: TRAZODONE HCL 50 MG TAB PO PRN (21:20)
[2017-06-28 22:00] VITALS: BP 146/73
[2017-06-29] VITALS: BP 118/59
[2017-06-29] MEDS: SODIUM CHLORIDE 0.45% 1,000 ML IV SCH (02:03)
[2017-06-29 04:00] VITALS: BP 130/63
[2017-06-29 06:59] LABS: BASOPHILS % 0.4 % (0.0-1.0); EOSINOPHILS # (AUTO) 0.1 (0.0-0.4); EOSINOPHILS % 1.2 % (0.0-6.0); HEMATOCRIT 39.8 % (34.2-44.1); HEMOGLOBIN 13.1 g/dL (12.0-16.0); LYMPHOCYTES # (AUTO) 2.8 (1.0-3.2); LYMPHOCYTES % 36.6 % (18.0-39.1); MEAN CORPUSCULAR HEMOGLOBIN 29.4 pg (28-32); MEAN CORPUSCULAR HGB CONC 32.9 g/dL (31-35); MEAN CORPUSCULAR VOLUME 89.2 fL (81-99); MONOCYTES # (AUTO) 0.6 (0.2-0.8); MONOCYTES % 8.3 % (4.4-11.3); NEUTROPHILS % 53.1 % (38.7-80.0); PLATELET COUNT 124 x10e3/uL (140-360); RED BLOOD COUNT 4.46 x10e6/uL (3.6-5.1); RED CELL DISTRIBUTION WIDTH 13.7 % (11.7-14.4)
[2017-06-29] MEDS: KETOROLAC TROMETHAMINE 30 MG/ML VIAL IV PRN (07:21)
[2017-06-29 07:22] LABS: ANION GAP 12.7 mmol/L (8-16); BLOOD UREA NITROGEN 10 mg/dL (7-26); BUN/CREATININE RATIO 14 (6-25); CARBON DIOXIDE 28 mmol/L (22-29); CHLORIDE 104 mmol/L (98-107); EST GLOMERULAR FILTRATION RATE > 60 ML/MIN (60-); GLUCOSE 135 mg/dL (74-118); POTASSIUM 3.7 mmol/L (3.5-5.1); SODIUM 141 mmol/L (136-145)
[2017-06-29] MEDS: INSULIN REGULAR, HUMAN 100 UNIT/1 ML 3ML VIAL SQ SCH (07:30)
[2017-06-29] MEDS: FLUOXETINE HCL 10 MG CAP PO SCH (08:08)
[2017-06-29] MEDS: AMLODIPINE BESYLATE 10 MG TAB PO SCH (08:08)
--- NOTE | 2017-06-29 08:50 | Discharge Summary ---
CONSULTANTS: 1. Dr. Leonardo Payton 2. Dr. Lalo Hughes PCP: Dr. Lalo Moran. FINAL DIAGNOSES: 1. Acute cholecystitis associated with elevated liver enzymes, gallstone. 2. Abdominal pain associated with nausea and vomiting, improving. 3. Multiple baseline problems including diabetes, obesity, hypertension. DISCHARGE MEDICATIONS: 1. Resume home medications. 2. [place] 10 mg 1 q.6h. p.r.n. for pain. 3. Levaquin 500 mg 1 tablet daily for 5 days. 4. Questran 1 package q.6 p.r.n. for diarrhea. 5. Zofran ODT 4 mg sublingual q.6h. p.r.n. for nausea and vomiting. HOSPITAL COURSE: Patient is a 61-year-old female came in with abdominal pain. The signs and symptoms and imaging tests consistent with acute cholecystitis. MRCP, no common bile duct stone. The patient was seen by Dr. Lalo Hughes. She underwent laparoscopic cholecystectomy done on June 28, 2017. Postoperatively, the patient has no complication. She is doing well. She passed gases. Had bowel movement. Patient is ready for oral intake. On clear liquid diet, tolerated it well and increase to advance diet as tolerated. Discussed with the patient on non-fatty diet for the next few weeks. Repeated lab work is unremarkable. The patient is stable. She will go home with the above medication on discharge. The patient will resume home medication. Advised to avoid metformin for few days prior to resuming. The patient is stable and discharged home. Follow up with Dr. Lalo Hughes for postoperative care. DIET: Will be 1800-calorie diabetic diet. ACTIVITY: As tolerated. Medication reconciliation to be done by her family doctor physician on followup visit. Job#: [id number]
== END 2017-06-29 09:42 | disposition home or self-care (01) | DRG 419 ==
LOC: ER 16:12 → ERHOLD 20:10 → MED/SURG 22:07
PROVIDERS: ADMIT Internal Medicine; ATTEND Internal Medicine
PROC: 0FT44ZZ Resection of Gallbladder, Percutaneous Endoscopic Approach (ICD-10-PCS; principal; 2017-06-28 12:00)
DX: K80.00 Calculus of gallbladder with acute cholecystitis without obstruction (principal); E11.42 Type 2 diabetes mellitus with diabetic polyneuropathy; K76.0 Fatty (change of) liver, not elsewhere classified; K58.9 Irritable bowel syndrome, unspecified; I10 Essential (primary) hypertension; E78.5 Hyperlipidemia, unspecified; Z88.5 Allergy status to narcotic agent; E66.9 Obesity, unspecified; Z68.35 Body mass index [BMI] 35.0-35.9, adult; F41.9 Anxiety disorder, unspecified
CPT/HCPCS: 36415; 71045; 74176; 74181; 76705; 80048; 80053; 81001; 82150; 82550; 82553; 82948; 83690; 84484; 85025; 88304; 93005; 99284; J0694; J1100; J1170; J1885; J1956; J2001; J2175; J2250; J2405; J2550; J7030

== ENCOUNTER → 2018-08-19 | Outpatient (RCR) | payer OTHER ==
[~2018-08-19] MED LIST changes: +ALLOPURINOL300 MG PO; +ALPRAZOLAM1 MG PO; +ATORVASTATIN CA20 MG PO; +GABAPENTIN400 MG PO; +LYRICA75 MG PO; +METFORMIN HCL500 MG PO
== END ==
LOC: OT 08-17 08:00
PROVIDERS: ATTEND Surgery Surgery of the Hand
DX: M65.331 Trigger finger, right middle finger (principal); M79.641 Pain in right hand; M25.641 Stiffness of right hand, not elsewhere classified; R27.9 Unspecified lack of coordination

== ENCOUNTER 2018-08-29 11:00 | Outpatient (RCR) | payer OTHER | END 2018-09-18 | LOC: OT 11:00 | PROVIDERS: ATTEND Surgery Surgery of the Hand | DX: M65.331 Trigger finger, right middle finger (principal); M79.641 Pain in right hand; M25.641 Stiffness of right hand, not elsewhere classified; R53.1 Weakness; R27.9 Unspecified lack of coordination ==

== ENCOUNTER 2018-10-13 10:00 | Outpatient (RCR) | payer OTHER | END 2018-10-19 | LOC: OT 10:00 | PROVIDERS: ATTEND Surgery Surgery of the Hand | DX: M65.331 Trigger finger, right middle finger (principal); M79.641 Pain in right hand; M25.641 Stiffness of right hand, not elsewhere classified; R53.1 Weakness; R27.9 Unspecified lack of coordination | CPT/HCPCS: 97010 ×7; 97035 ×7; 97110 ×3; 97139; 97140 ×6; L3927 ==

== ENCOUNTER 2018-10-20 16:02 | Outpatient (RCR) | payer OTHER | END 2018-11-19 | LOC: OT 16:02 | PROVIDERS: ATTEND Surgery Surgery of the Hand | DX: M65.331 Trigger finger, right middle finger (principal) ==

== ENCOUNTER 2022-04-26 06:20 | Inpatient (IN) | payer MEDICARE, OTHER ==
[~2022-04-26] VITALS: Ht 162.6 cm; Wt 93.0 kg
[2022-04-26] MEDS ORDERED: ONDANSETRON HCL INJ 2MG/ML 2ML 2 MG/ML VIAL IV STA (06:26)
[2022-04-26] MEDS ORDERED: Morphine 4mg INJECTION 4 MG/ML INJ IV ONE (06:30)
[2022-04-26] MEDS ORDERED: SODIUM CHLORIDE 0.9% 1000ML 1,000 ML IV ONE (06:30)
[2022-04-26 06:38] LABS: BASOPHILS # (AUTO) 0.1 (0.0-0.1); BASOPHILS % 0.6 % (0.0-1.0); EOSINOPHILS # (AUTO) 0.2 (0.0-0.4); EOSINOPHILS % 1.8 % (0.0-6.0); HEMATOCRIT 49.4 % (34.2-44.1); HEMOGLOBIN 15.1 g/dL (12.0-16.0); LYMPHOCYTES # (AUTO) 1.9 (1.0-3.2); LYMPHOCYTES % 21.5 % (18.0-39.1); MEAN CORPUSCULAR HEMOGLOBIN 29.5 pg (28-32); MEAN CORPUSCULAR HGB CONC 30.6 g/dL (31-35); MEAN CORPUSCULAR VOLUME 96.5 fL (81-99); MONOCYTES # (AUTO) 0.5 (0.2-0.8); NEUTROPHILS # (AUTO) 6.3 (2.1-6.9); NEUTROPHILS % 69.5 % (38.7-80.0); PLATELET COUNT 149 x10e3/uL (140-360); RED BLOOD COUNT 5.12 x10e6/uL (3.6-5.1); RED CELL DISTRIBUTION WIDTH 13.2 % (11.7-14.4)
[2022-04-26 06:55] LABS: CLARITY,URINE HAZY (CLEAR); COLOR,URINE YELLOW (YELLOW)
[2022-04-26 06:56] LABS: BACTERIA,URINE FEW /HPF; EPITHELIAL CELLS,URINE MODERATE /LPF; KETONES,URINE NEGATIVE (NEGATIVE); LEUKOCYTE ESTERASE ,URINE SMALL (NEGATIVE); NITRITE,URINE NEGATIVE (NEGATIVE); PROTEIN,URINE DIPSTICK 1+ (NEGATIVE); RBC,URINE 0-5 /HPF (0-5); URINE UROBILINOGEN 0.2 mg/dL (0.2 - 1)
[2022-04-26 06:57] LABS: ALBUMIN 3.5 g/dL (3.5-5.0); ALBUMIN/GLOBULIN RATIO 1.1 (0.8-2.0); ANION GAP 14.9 mmol/L (8-16); CALCIUM 9.1 mg/dL (8.4-10.2); CREATININE, SERUM 0.84 mg/dL (0.57-1.11); POTASSIUM 3.9 mmol/L (3.5-5.1)
[2022-04-26] MEDS ORDERED: IOPAMIDOL 370 MG/ML 100 ML INFUS..BTL INJ ONE (07:28)
[2022-04-26] MEDS ORDERED: CIPROFLOXACIN 400 MG/D5W 200ML 200 ML IV STA (08:01)
[2022-04-26] MEDS ORDERED: METRONIDAZOLE 500MG/NS 100ML 100 ML IV STA (08:01)
[2022-04-26] MEDS: SODIUM CHLORIDE 0.9% 1000ML 1,000 ML IV SCH ×2 (09:00→20:51)
[2022-04-26 10:00] VITALS: BP 136/95
[2022-04-26] MEDS ORDERED: CIPROFLOXACIN 400 MG/D5W 200ML 200 ML IV SCH (12:15)
[2022-04-26] MEDS ORDERED: Morphine 2mg Syringe 2 MG/ML SYR IV PRN (12:15)
[2022-04-26] MEDS ORDERED: ONDANSETRON HCL INJ 2MG/ML 2ML 2 MG/ML VIAL IV PRN (12:15)
[2022-04-26 12:46] VITALS: BP 124/55
[2022-04-26] MEDS ORDERED: METRONIDAZOLE 500MG/NS 100ML 100 ML IV SCH (14:00)
[2022-04-26] MEDS ORDERED: HYDROCODONE/APAP 5MG-325MG TAB PO ONE (15:15)
[2022-04-26] MEDS: METRONIDAZOLE 500MG/NS 100ML 100 ML IV SCH (16:34)
[2022-04-26 17:06] VITALS: BP 119/89
[2022-04-26] MEDS ORDERED: HYDROCODONE/APAP 5MG-325MG TAB PO PRN (17:45)
[2022-04-26] MEDS ORDERED: ACETAMINOPHEN 325 MG TAB PO PRN (17:45)
[2022-04-26 19:35] VITALS: BP 126/80
[2022-04-26 20:00] VITALS: BP 126/80
[2022-04-26] MEDS: CIPROFLOXACIN 400 MG/D5W 200ML 200 ML IV SCH (20:50)
[2022-04-27] VITALS (7 sets, daily range): BP systolic 108–177; BP diastolic 56–85
[2022-04-27] MEDS: METRONIDAZOLE 500MG/NS 100ML 100 ML IV SCH ×4 (00:58→21:27)
[2022-04-27] MEDS: SODIUM CHLORIDE 0.9% 1000ML 1,000 ML IV SCH ×3 (01:01→17:56)
[2022-04-27 05:56] LABS: BASOPHILS # (AUTO) 0.1 (0.0-0.1); BASOPHILS % 0.8 % (0.0-1.0); EOSINOPHILS # (AUTO) 0.2 (0.0-0.4); EOSINOPHILS % 3.9 % (0.0-6.0); HEMATOCRIT 44.4 % (34.2-44.1); HEMOGLOBIN 13.4 g/dL (12.0-16.0); LYMPHOCYTES # (AUTO) 2.5 (1.0-3.2); LYMPHOCYTES % 41.1 % (18.0-39.1); MEAN CORPUSCULAR HEMOGLOBIN 29.5 pg (28-32); MEAN CORPUSCULAR HGB CONC 30.2 g/dL (31-35); MEAN CORPUSCULAR VOLUME 97.6 fL (81-99); MONOCYTES # (AUTO) 0.4 (0.2-0.8); NEUTROPHILS # (AUTO) 2.8 (2.1-6.9); NEUTROPHILS % 46.5 % (38.7-80.0); PLATELET COUNT 146 x10e3/uL (140-360); RED BLOOD COUNT 4.55 x10e6/uL (3.6-5.1); RED CELL DISTRIBUTION WIDTH 13.5 % (11.7-14.4)
[2022-04-27 06:24] LABS: ALBUMIN 3.2 g/dL (3.5-5.0); ALBUMIN/GLOBULIN RATIO 1.1 (0.8-2.0); ANION GAP 11.1 mmol/L (8-16); CALCIUM 8.2 mg/dL (8.4-10.2); CREATININE, SERUM 0.7 mg/dL (0.57-1.11); POTASSIUM 4.1 mmol/L (3.5-5.1)
[2022-04-27] MEDS: CIPROFLOXACIN 400 MG/D5W 200ML 200 ML IV SCH ×2 (10:24→21:27)
[2022-04-27] MEDS ORDERED: ACETAMIN/BUTALBITAL/CAFFEINE TAB PO PRN (17:45)
[2022-04-27] MEDS ORDERED: ACETAMIN/BUTALBITAL/CAFFEINE TAB PO ONE (17:59)
[2022-04-28 01:37] VITALS: BP 131/57
[2022-04-28] MEDS: METRONIDAZOLE 500MG/NS 100ML 100 ML IV SCH ×2 (05:00→14:12)
[2022-04-28] MEDS: SODIUM CHLORIDE 0.9% 1000ML 1,000 ML IV SCH ×3 (05:00→18:24)
[2022-04-28 06:13] VITALS: BP 136/71
[2022-04-28 08:43] VITALS: BP 113/57
[2022-04-28] MEDS: CIPROFLOXACIN 400 MG/D5W 200ML 200 ML IV SCH (09:41)
[2022-04-28 12:34] VITALS: BP 138/72
[2022-04-28 15:50] VITALS: BP 125/69
[2022-04-28] MEDS ORDERED: ACETAMINOPHEN325 M1 PO (19:02)
[2022-04-28] MEDS ORDERED: LOMOTIL TABLET1 EACH PO (19:02)
[2022-04-28] MEDS ORDERED: CIPRO500 MG PO (19:02)
[2022-04-28] MEDS ORDERED: FLAGYL375 MG PO (19:02)
[2022-04-28] MEDS ORDERED: Acetamin/Butalbital/Caffeine PO (19:02)
== END 2022-04-28 20:00 | disposition home or self-care (01) | DRG 392 ==
LOC: ER 06:30 → ERHOLD 08:27 → MED/SURG2 09:34
PROVIDERS: ADMIT Internal Medicine; ATTEND Internal Medicine
DX: K52.9 Noninfective gastroenteritis and colitis, unspecified (principal); K92.2 Gastrointestinal hemorrhage, unspecified; K57.90 Diverticulosis of intestine, part unspecified, without perforation or abscess without bleeding; K58.9 Irritable bowel syndrome, unspecified; I10 Essential (primary) hypertension; K21.9 Gastro-esophageal reflux disease without esophagitis; F32.A Depression, unspecified; M79.7 Fibromyalgia; E11.9 Type 2 diabetes mellitus without complications; F41.9 Anxiety disorder, unspecified; E78.5 Hyperlipidemia, unspecified; Z79.4 Long term (current) use of insulin; Z88.1 Allergy status to other antibiotic agents; Z88.5 Allergy status to narcotic agent; Z90.49 Acquired absence of other specified parts of digestive tract; Z98.890 Other specified postprocedural states; Z79.899 Other long term (current) drug therapy
CPT/HCPCS: 36415; 74177; 80053; 81001; 82948; 83690; 85025; 99284; J2405; J7030; Q9967